=== PATIENT | male | born 1945 | race Caucasian/White ===

== ENCOUNTER 2017-02-04 09:30 | Outpatient (RCR) | payer MEDICARE, OTHER ==
[~2017-02-04] VITALS: Ht 190.5 cm; Wt 112.9 kg
[~2017-02-04 09:30] MED LIST: CA C1TAB85 PO; CHOL200021 PO; DIPH-740 PO; DOCU-416 PO; FISH OIL 1,2001 CAP PO; GABA-549 PO; HYDR-317 PO; HYDR-4309 PO; HYDR12.556 PO; IBUP600T22 PO; LORA5TAB16 PO; MAGN1TAB32 PO; MELO-150 PO; MULT-820 PO; OLM20 PO; OLME40TA28 PO; OXYB10TA16 PO; OXYB10TA21 PO; OXYC-865 PO; PHEN100T27 PO; PHEN200T32 PO; POTC540 PO; TAMS0.4C25 PO; TAMS0.4C70 PO
[2017-02-04 09:33] VITALS: BP 136/69
--- NOTE | 2017-02-04 09:35 | ONC Progress Note - NP.Halsey ---
Patient History Date of Service Feb 04, 2017 Reason For Visit/HPI Patient is seen today for follow-up of his thrombocytopenia and hereditary hemochromatosis. Overall patient is feeling very well and denies any symptoms that he previously had if his iron studies were elevated such as increased fatigue and a generalized ache. Patient does have lower back pain and is scheduled to have back surgery on February 22 for disc surgery and nerve opening repair. Patient feels that post surgery some of his lower extremity numbness and tingling should improve. He remains active and goes to the gym at least 3 days a week. He previously had a cystogram on 12/18/2016 and reports that a large kidney stone was removed. Since that time he is significantly felt better. He has no concerns today. Labs were drawn from an outside source. Problem List (1) Thrombocytopenia (2) Hemochromatosis Oncology History The patient is a 71-year-old male who was diagnosed with hereditary hemochromatosis ten years ago, on maintenance phlebotomies currently. The patient has been followed by Dr. 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 He was found to have mild thrombocytopenia and for this reason the patient had CT-guided biopsy of the liver done on April 28, 2016 and the final diagnosis was consistent with focal mild periportal chronic inflammatory and no increased fibrosis. The patient was concerned about his thrombocytopenia and has been seen for management. Patient had repeat CBC which showed white count 4.8, hemoglobin 17.2, hematocrit 51.7% and platelets 103,000. Iron studies showed serum iron 92, TIBC 238, iron saturation 39% and ferritin 90. Platelet associated antibodies came back negative. Serum folate was more than 20. Methylmalonic acid assay was normal at 195. B12 level was normal at 557. Psychosocial History Social History The patient is with two children. 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 He denies any abuse of tobacco or illicit drugs. He has one drink per week. Smoking History: No Smoking Status: Never Smoker Medications and Allergies Reported Medications Tamsulosin Hcl (TAMSULOSIN HCL) 0.4 Mg Cap.er.24h, 0.4 MG PO QDPC, #30 CAP 09/17/16 Docusate Sodium (COLACE) 100 Mg Capsule, 100 MG PO BID, #30 CAPSULE 09/17/16 Hydrocodone Bit/Acetaminophen (NORCO 5-325 TABLET) 1 Each Tablet, 1-2 EACH PO Q6H Y for PAIN, #30 TAB 09/17/16 Hydrochlorothiazide (HYDROCHLOROTHIAZIDE) 12.5 Mg Capsule, 1 TAB PO BID, CAPSULE 09/15/16 Potassium Citrate (POTASSIUM CITRATE) 540 Mg Tabcr, 2 TAB PO BID 09/15/16 Loratadine (CLARITIN) 5 Mg Tab.rapdis, 5 MG PO DAILY 08/07/16 Magnesium Oxide/Pyridoxine Hcl (BEELITH TABLET) 1 Each Tablet, 1 EACH PO DAILY 05/15/16 Cholecalciferol (Vitamin D3) (VITAMIN D) 2,000 Unit Capsule, 2000 UNIT PO DAILY , CAPSULE 07/04/15 Olmesartan Medoxomil (BENICAR) 40 Mg Tablet, 40 MG PO DAILY 07/04/15 Gabapentin (GABAPENTIN) 300 Mg Capsule, 300 MG PO TID Y for PAIN, CAPSULE 07/04/15 Meloxicam (Mobic) 15 Mg Tablet, 15 MG PO DAILY, 0 Refills 02/23/11 Allergies: Coded Allergies: No Known Drug Allergies (Verified , 07/04/15) Review of System/Physical Exam Review of Systems All Systems Reviewed/Normal: Yes, Except as Noted Hematologic: Positive for Fatigue Neurologic: Numbness of Feet, Tingling of Feet Physical Exam Vital Signs Temperature: 97.3 Pulse: 74 BP Systolic: 136 BP Diastolic: 69 Respiratory Rate: 16 O2 SAT: 94 O2 Delivery: Height (inches) 75.00 Weight lb: 242 Weight oz: Weight Kg (Axel): Pain: 0 ECOG Score: 0 General: Stable, Well Developed, Well Nourished, Not In Acute Distress Lungs: Clear to Auscultation Heart: Regular Rate, Regular Rhythm, No Gallops, No Murmurs Abdomen: Other (bowel sounds active) Extremities: No Edema Psychiatric: Mood appears normal, Affect appears normal Skin: No Skin Rashes, No Bruising, No Purpura Diagnostic Studies Diagnostic Studies Laboratory CBC drawn on 01/28/2017 shows a white cell count of 4800, hemoglobin 18.8, hematocrit of 51.7, and a platelet count of 117,000. His chemistry is essentially unremarkable. Serum iron is 199, serum ferritin is 106. Previously ferritin on 05/15/2016 was 24. Patient also had healthcare labs drawn on 2016 and hemoglobin was 18.9, platelet count 111,000 and saturation was at 58% Assessment and Plan Assessment & Plan 1. Thrombocytopenia, very mild with platelet count of 111,000 today. His is relatively stable for this patient.. His B12 folate level, methylmalonic acid assay and platelet associated antibodies came within the normal range on previous studies. 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 I will continue to monitor his platelet count in the future, and if his platelet count drops to 20,000 a bone marrow aspiration biopsy will be considered. Patient has low platelets documented since 2016. His hemoglobin remains elevated at 18.8 over the last 6 months with a hematocrit of 51.7. Patient previously received phlebotomies but has not been phlebotomized in over a year. I will repeat CBC and CMP 3 months from now. Patient is having back surgery in February which may affect his platelet level and hemoglobin. Patient agrees with this plan of care. 2. Hereditary hemochromatosis. He is borderline with a hemoglobin of 18.8 and ferritin of 106, serum iron is 199. Because he is having surgery he will not be phlebotomize today. We will repeat labs in [address] Croft' s guideline reports tophlebotomize 500 mL of blood if his ferritin is above 100 and/or iron saturation above 60%. Patient has not had any phlebotomy during 2017. We will repeat his iron studies in three months from now 3. Peripheral neuropathy on gabapentin. 4. Type 2 diabetes, very mild. 5. History of renal stones. PLAN 1. Continue followup. 2. Patient to return in 3 months with CBC, chem panel, iron studies with ferritin. 3. Patient is to contact us for any new concerns or complaints. I personally spent a total of 20 minutes. Of that 15 minutes was counseling/ coordination of patient's care. See my note above for details. DEVON MCGOWAN TRAVELING REPAIR ACCOUNTANT-BC, ONC Feb 04, 2017 09:35
[2017-02-17] MEDS ORDERED: HYDR-2966 PO (09:50)
[2017-02-17] MEDS ORDERED: LORA-629 PO (11:08)
[2017-02-17] MEDS ORDERED: PSYL0.5241 PO (11:08)
[2017-02-22] MEDS ORDERED: PYRI50CA PO (17:21)
[2017-02-22] MEDS ORDERED: MAGN400T4 PO (17:21)
[2017-02-24] MEDS ORDERED: DIA5 PO (07:22)
[2017-02-24] MEDS ORDERED: DOCU240C84 PO (07:22)
[2017-02-24] MEDS ORDERED: OXYC-865 PO (07:23)
== END 2017-03-05 09:03 | disposition home or self-care (01) ==
LOC: ONC 09:30
PROVIDERS: ATTEND Internal Medicine Hematology
DX: D69.6 Thrombocytopenia, unspecified (principal); E83.110 Hereditary hemochromatosis; G62.9 Polyneuropathy, unspecified; E11.9 Type 2 diabetes mellitus without complications; Z87.442 Personal history of urinary calculi; Z79.899 Other long term (current) drug therapy
CPT/HCPCS: 99212

== ENCOUNTER 2017-02-22 00:46 | Observation (INO) | payer MEDICARE, OTHER ==
[~2017-02-22] VITALS: Ht 190.5 cm; Wt 110.2 kg
[~2017-02-22 00:46] MED LIST changes: +HYDR-2966 PO; +LORA-629 PO; +PSYL0.5241 PO
[2017-02-22] MEDS ORDERED: THROMBIN (BOVINE) 20,000 UNIT VIAL ONE (06:20)
[2017-02-22] MEDS ORDERED: fentaNYL CITR 250 MCG/5 ML AMP ONE (08:08)
[2017-02-22] MEDS ORDERED: LIDOCAINE 2% IV 100 MG/5ML SYR ONE (08:09)
[2017-02-22] MEDS ORDERED: PROPOFOL EMUL(*) 10MG/ML 20 ML 20 ML ONE (08:09)
[2017-02-22 09:05] VITALS: BP 118/75
[2017-02-22] MEDS ORDERED: DEXAMETHASONE SOD 20MG/5 ML VL ONE (12:01)
[2017-02-22] MEDS ORDERED: BUPIVACAIN 0.25% INJ 50ML VIAL ONE (12:01)
[2017-02-22] MEDS ORDERED: DEXAMETHASONE SOD PHOS 10MG/ML ONE (12:24)
[2017-02-22] MEDS ORDERED: ONDANSETRON 4 MG/2 ML VIAL ONE (12:25)
[2017-02-22] MEDS ORDERED: ROCURONIUM BROM 10 MG/ML 10 ML ONE (12:30)
[2017-02-22] MEDS ORDERED: EPINEPHrine HCL 30 MG/30 ML ONE (12:30)
[2017-02-22] MEDS ORDERED: SUGAMMADEX SOD 500 MG/5 ML SDV ONE (12:30)
[2017-02-22] MEDS ORDERED: NORMOSOL R SOLN(*) 1000 ML BAG 1,000 ML IV PRN (13:30)
[2017-02-22] MEDS ORDERED: ceFAZolin(*) 2GM/D5W 50ML 50 ML IVPB ONE (13:30)
[2017-02-22] MEDS ORDERED: FAMOTIDINE 20 MG TAB PO ONE (13:30)
[2017-02-22] MEDS ORDERED: MIDAZOLAM 2 MG/2 ML VIAL IVP PRN (13:30)
[2017-02-22] MEDS ORDERED: LIDOCAINE/SOD BICARB 8.4% SYR ID ONE (13:30)
--- NOTE | 2017-02-22 13:45 | RADIOLOGY IMAGING REPORT ---
FACILITY: [facility] PATIENT NAME: Adalberto Sun : 1945 MR: [id number] V: [id number] EXAM DATE: ORDERING PHYSICIAN: ANURADHA TORRES TECHNOLOGIST: Location: [facility] [place] Patient: Adalberto Sun : 1945 Visit/Account:[id number] Date of Sevice: 02/22/2017 Exam type: LUMBAR SPINE 1 VIEW History: LUMBASPINE L2-L3 DISC HERNIATION COMPARISON: MR lumbar spine January 01, 2017 Findings: Single lateral intraoperative view of the lumbar spine was submitted. Assuming the patient has five lumbar type vertebral bodies a metallic probe and sponge marker projects between the day porter ior spinous processes of L2 and L3. Extensive spondylotic changes lumbar spine noted. IMPRESSION: 1. As above Report Dictated By: Gabriella Stallworth MD at 02/22/2017 1:39 PM Report E-Signed By: Gabriella Stallworth MD at 02/22/2017 1:42 PM WSN:[email or web address]
[2017-02-22] MEDS ORDERED: fentaNYL CITR 100 MCG/2 ML AMP ONE ×2 (15:00→15:14)
[2017-02-22] MEDS ORDERED: ACETAMINOPHEN(*)1000 MG/100 ML 100 ML IVPB PRN (15:15)
[2017-02-22] MEDS ORDERED: BENZOCAINE/MENTHOL 1 EACH LOZG PO PRN (15:15)
[2017-02-22] MEDS ORDERED: BISACODYL 10 MG SUPP PR PRN (15:15)
[2017-02-22] MEDS ORDERED: oxyCODONE HCL 5 MG CAP PO PRN (15:15)
[2017-02-22] MEDS ORDERED: FLUSH 10 ML SYR IVP PRN (15:15)
[2017-02-22] MEDS ORDERED: ACETAMINOPHEN 500 MG TAB PO PRN (15:15)
[2017-02-22] MEDS ORDERED: DIAZEPAM 5 MG TAB PO PRN (15:15)
[2017-02-22] MEDS ORDERED: diphenhydrAMINE 25 MG CAP PO PRN (15:15)
[2017-02-22] MEDS ORDERED: LR(*) 1000 ML BAG 1,000 ML IV PRN (15:15)
[2017-02-22] MEDS ORDERED: ONDANSETRON 4 MG/2 ML VIAL IVP PRN (15:15)
[2017-02-22] MEDS ORDERED: HYDROmorphone HCL 2 MG/ML SDV IVP PRN (15:15)
[2017-02-22] MEDS ORDERED: MAGNESIUM HYDROXIDE* 30ML UDCP PO PRN (15:15)
[2017-02-22] MEDS ORDERED: GABAPENTIN 300 MG CAP PO PRN (16:15)
[2017-02-22] MEDS: APAP/HYDROCODONE 325/5 TAB PO PRN (16:24)
[2017-02-22] MEDS ORDERED: PYRI50CA PO (17:21)
[2017-02-22] MEDS ORDERED: MAGN400T4 PO (17:21)
--- NOTE | 2017-02-22 17:26 | Hospitalist Consultation ---
History of Present Illness Requesting Physician Dr. Campos Reason for Consult Hypertension History of Present Illness This patient was admitted for lumbar surgery. It is reported that the surgery went well and was without complication. History Problems: (1) Essential hypertension (2) Hemochromatosis Status: Acute Home Meds Reported Medications Pyridoxine Hcl (VITAMIN B-6) 50 Mg Capsule, 50 MG PO, CAPSULE 02/22/17 Magnesium Oxide (MAG-OXIDE) 400 Mg Tablet, 400 MG PO 02/22/17 Psyllium Husk (METAMUCIL) 0.52 Gm Capsule, 22 G PO QDAY, CAPSULE 02/17/17 Loratadine (LORATADINE) 10 Mg Tablet, 10 MG PO QDAY 02/17/17 Hydrochlorothiazide (HYDROCHLOROTHIAZIDE) 25 Mg Tablet, 1 TAB PO QDAY, TAB 02/17/17 Potassium Citrate (POTASSIUM CITRATE) 540 Mg Tabcr, 1620 MG PO QDAY 09/15/16 Cholecalciferol (Vitamin D3) (VITAMIN D) 2,000 Unit Capsule, 2000 UNIT PO DAILY , CAPSULE 07/04/15 Olmesartan Medoxomil (BENICAR) 40 Mg Tablet, 40 MG PO DAILY 07/04/15 Gabapentin (GABAPENTIN) 300 Mg Capsule, 300 MG PO TID Y for PAIN, CAPSULE 07/04/15 Meloxicam (Mobic) 15 Mg Tablet, 15 MG PO DAILY, 0 Refills 02/23/11 Discontinued Reported Medications Tamsulosin Hcl (TAMSULOSIN HCL) 0.4 Mg Cap.er.24h, 0.4 MG PO QDPC, #30 CAP 09/17/16 Docusate Sodium (COLACE) 100 Mg Capsule, 100 MG PO BID, #30 CAPSULE 09/17/16 Hydrocodone Bit/Acetaminophen (NORCO 5-325 TABLET) 1 Each Tablet, 1-2 EACH PO Q6H Y for PAIN, #30 TAB 09/17/16 Hydrochlorothiazide (HYDROCHLOROTHIAZIDE) 12.5 Mg Capsule, 1 TAB PO BID, CAPSULE 09/15/16 Loratadine (CLARITIN) 5 Mg Tab.rapdis, 5 MG PO DAILY 08/07/16 Magnesium Oxide/Pyridoxine Hcl (BEELITH TABLET) 1 Each Tablet, 1 EACH PO DAILY 05/15/16 Allergies: Coded Allergies: tomato (Verified Allergy, Unknown, 02/17/17) Uncoded Allergies: chocolate (Allergy, Unknown, 02/17/17) red wine (Allergy, Unknown, 02/17/17) Hx Smoking: No Smoking Status: Never Smoker Caffeine Intake: Coffee, Tea Caffeine/Cups Per Day: 2 cups Qday Hx Alcohol Use: Yes (1-2 drinks per month) Alcohol Used: Wine Hx Substance Use Disorder: No Social Drug Use: Never History of IV Drug Use: No Review of Systems All Systems Reviewed/Normal: Yes Exam Vital Signs Vital Signs Date Time Temp Pulse Resp B/P (MAP) Pulse Ox O2 Delivery O2 Flow Rate FiO2 02/22/17 15:45 64 16 93 02/22/17 09:05 97.1 118/75 (89) Room Air Neuro: No Gross deficits Cardiovascular: Regular Rate and Rhythm Respiratory: Clear to Auscultation Extremities: No Edema Integumentary: No Cyanosis Assessment and Plan Problems: (1) Essential hypertension Assessment & Plan: He is on chronic treatment with olmesartan and hydrochlorothiazide. The olmesartan has been ordered with hold parameters. Venous Thromboembolism Antithrombotics Is Pt On Any Antithrombotics?: No MALIKA ADAMS DO Feb 22, 2017 17:26
[2017-02-22 19:00] VITALS: BP 117/67
[2017-02-22] MEDS: ceFAZolin(*) 2GM/D5W 50ML 50 ML IVPB SCH (19:42)
[2017-02-22 20:00] VITALS: BP 136/72
[2017-02-22] MEDS: DOCUSATE SODIUM 100 MG CAP PO SCH (20:41)
[2017-02-22 21:00] VITALS: BP 137/69
[2017-02-22 22:00] VITALS: BP 138/77
[2017-02-22 23:00] VITALS: BP 123/69
[2017-02-23] MEDS: APAP/HYDROCODONE 325/5 TAB PO PRN ×4 (04:26→20:39)
[2017-02-23] MEDS: ceFAZolin(*) 2GM/D5W 50ML 50 ML IVPB SCH ×2 (04:26→12:27)
[2017-02-23 07:27] VITALS: BP 140/71
--- NOTE | 2017-02-23 07:42 | Hospitalist Progress Note ---
Subjective Progress Notes Subjective This patient was admitted with hold parameters. He had no acute issues overnight. Patient Complains of: Cardiovascular: No: Chest Pain Respiratory: No: Shortness of Breath Physical Exam Vital Signs Date Time Temp Pulse Resp B/P (MAP) Pulse Ox O2 Delivery O2 Flow Rate FiO2 02/23/17 07:27 98.4 76 16 140/71 (94) 95 Room Air 02/22/17 23:00 0.5 Cardiovascular: Regular Rate and Rhythm Respiratory: Clear to Auscultation Assessment and Plan Problems: (1) Essential hypertension Assessment & Plan: He is on chronic treatment with olmesartan and hydrochlorothiazide. The olmesartan has been ordered with hold parameters. Exam Sepsis Risk: No Definite Risk MALIKA ADAMS DO Feb 23, 2017 07:42
[2017-02-23 08:48] VITALS: Ht 190.5 cm; Wt 110.2 kg
[2017-02-23] MEDS: LORATADINE 10 MG TAB PO SCH (09:25)
[2017-02-23] MEDS: DOCUSATE SODIUM 100 MG CAP PO SCH ×2 (09:25→20:39)
[2017-02-23] MEDS: OLMESARTAN 20 MG TAB PO SCH (09:26)
--- NOTE | 2017-02-23 11:58 | OPERATIVE REPORT 1 ---
EVENT DATE: February 22, 2017 SURGEON: Quinton Campos MD ANESTHESIOLOGIST: Param Huffman MD ANESTHESIA: General endotracheal anesthsia SALARY AND WAGE ADMINISTRATOR: SUKHI Chawla, HOUSE WIRER HELPER PREOPERATIVE DIAGNOSIS L2 through L5 spinal stenosis with neurogenic claudication. POSTOPERATIVE DIAGNOSIS L2 through L5 spinal stenosis with neurogenic claudication. PROCEDURE PERFORMED L2 through L5 laminectomy. IV FLUIDS 900 mL. ESTIMATED BLOOD LOSS 125 mL. IMPLANTS None. SPECIMENS None. DRAINS None. COMPLICATIONS None. DISPOSITION Post anesthesia care unit. INDICATION FOR SURGERY Mr. Sun is a 71-year-old gentleman who presented to my clinic with a long history of worsening bilateral lower extremity radiating pain, numbness, tingling and weakness. He had significant decreased walking tolerance secondary to his symptoms. He had tried physical therapy, medications and activity modification with no real improvement. His physical examination was essentially normal, but his imaging studies including x-rays and an MRI showed significant spinal stenosis secondary to degenerative disk disease, facet hypertrophy and ligamentum flavum thickening at L2-L3, L3-L4 and L4-L5. Secondary to no real improvement in his symptoms despite nonsurgical management coupled with the findings on his MRI and his ongoing pain, numbness and tingling , Mr. Sun was offered and elected to undergo L2 through L5 laminectomy. Prior to surgery, I explained in detail to the patient the possible risks of surgery, including the risk of nerve injury, persistent and/or worsening pain, spinal fluid leak, infection or meningitis, excessive bleeding, paralysis, , blindness, sexual dysfunction, retrograde ejaculation, blood vessel injury, injury to neighboring organs, need for further surgery, bowel and bladder dysfunction, instability and autonomic nervous system dysfunction as well as unforeseen medical and surgical complications. An understanding that in general spinal surgery is more predictive in improving extremity discomfort than axial spine pain and arresting the progression of spinal cord dysfunction rather than improving it was stressed. DESCRIPTION OF PROCEDURE On the date of surgery, the patient was admitted to the preoperative hold area, and all questions were answered. The operative site was identified and marked by myself. The patient was then taken to the operating room, and after identification of the patient and the operative site, administration of antibiotics and completion of anesthesia, the patient was prepped and draped in the prone position on a Ridge table. During this time and the entire operation, care was taken to maintain appropriate perfusion pressures during anesthesia. All bony protuberances and soft tissues were well padded in the standard fashion. Preoperative antibiotics were administered according to the appropriate timing schedule. Every 15 minutes, soft tissue retractors were relaxed, and the wound was irrigated. At the conclusion of the procedure, the sponge and needle counts were correct x 2. Final time out was undertaken by members of the operating team to confirm correct patient, correct levels and correct surgery. An incision was then made in the skin over the intended surgical levels, and dissection was carried down to the subcutaneous tissue to the level of the deep fascia. The deep fascia was elevated off the posterior elements in a subperiosteal manner, and an intraoperative radiograph was taken to confirm the appropriate spinal level. Once the appropriate spinal levels were identified with intraoperative imaging, a rongeur was used to remove the spinous processes of L2, L3 and L4. Once this was completed, the laminas were thinned bilaterally with the use of a rongeur. A small curved curette was used to undermine the inferior insertion of the ligamentum flavum on the undersurface of the inferior lamina of L5. All dural adhesions were freed from the surrounding bone and ligaments with the use of a [place] prior to the use of the Kerrison punch. A 3-0 and 4-0 Kerrison punch was then used to perform midline decompression. A bilateral lateral recess decompression was performed utilizing a 4-0 [place] rongeur to decompress thoroughly the lateral recesses at L2-L3, L3-L4 and L4-L5 followed by foraminotomies of all involved nerve roots. An angled dural elevator and [place] was then passed around exiting nerve roots to confirm that they were free without any compression. Once the decompression was completed, meticulous hemostasis was obtained, and the wound was irrigated with copious sterile saline solution. The wound was then closed in layers using interrupted sutures for the deep fascia, inverted interrupted sutures for the subcutaneous tissue and then a running subcuticular skin stitch. Sponge and instrument counts were correct x 2. POSTOPERATIVE CARE PLAN Mr. Sun will remain in the hospital until he meets discharge criteria, including voiding spontaneously, ambulating freely, tolerating p.o. intake and with good pain control. He will then follow up in my clinic in two weeks time for repeat examination. JEVON
[2017-02-23 14:59] VITALS: BP 105/64
[2017-02-23 19:36] VITALS: BP 107/56
[2017-02-23 22:47] VITALS: BP 95/48
[2017-02-23 22:54] VITALS: BP 96/46
[2017-02-24 01:19] VITALS: BP 112/74
[2017-02-24] MEDS: APAP/HYDROCODONE 325/5 TAB PO PRN ×2 (01:22→05:40)
[2017-02-24 03:19] VITALS: BP 108/64
[2017-02-24] MEDS ORDERED: DOCU240C84 PO (07:22)
[2017-02-24] MEDS ORDERED: DIA5 PO (07:22)
[2017-02-24] MEDS ORDERED: OXYC-865 PO (07:23)
[2017-02-24] MEDS: OLMESARTAN 20 MG TAB PO SCH (08:16)
[2017-02-24] MEDS: DOCUSATE SODIUM 100 MG CAP PO SCH (08:16)
[2017-02-24] MEDS: LORATADINE 10 MG TAB PO SCH (08:16)
[2017-02-24 08:19] VITALS: BP 104/70
--- NOTE | 2017-02-24 08:44 | Hospitalist Progress Note ---
Subjective Progress Notes Subjective No cp/sob. No concerns from the patient or staff. Physical Exam Vital Signs Date Time Temp Pulse Resp B/P (MAP) Pulse Ox O2 Delivery O2 Flow Rate FiO2 02/24/17 08:20 90 Room Air 02/24/17 08:19 97.7 59 16 104/70 (81) 02/22/17 23:00 0.5 General Appearance: Alert, Awake, No Acute Distress Assessment and Plan Problems: (1) Status post lumbar laminectomy Status: Acute Assessment & Plan: No CV/pulmonary issues. Will defer any DVT prophylaxis to Dr. Campos. (2) Essential hypertension Status: Chronic Assessment & Plan: He is on chronic treatment with olmesartan and hydrochlorothiazide. The olmesartan will be restarted in 2 days and the hydrochlorothiazide in 4 days. If he is getting light headed with standing, he is to contact his PCP. Exam Sepsis Risk: No Definite Risk JAYJAY BRANCH MD Feb 24, 2017 08:44
== END 2017-02-24 07:47 | disposition home or self-care (01) ==
LOC: OR 00:46 → MED 15:40
PROVIDERS: ADMIT Orthopaedic Surgery; ATTEND Orthopaedic Surgery
DX: M48.062 Spinal stenosis, lumbar region with neurogenic claudication (principal); E11.9 Type 2 diabetes mellitus without complications
CPT/HCPCS: 36416; 63030; 63035; 72020; 82948; 97116; 97161; A9270; G0378; J0171; J1100; J2001; J2405; J2704; J3010; J3490; J0690

== ENCOUNTER 2017-05-06 08:57 | Outpatient (RCR) | payer MEDICARE, OTHER ==
[2017-02-23 08:48] VITALS: Wt 113.6 kg
[~2017-05-06 08:57] MED LIST changes: +DIA5 PO; +DOCU240C84 PO; +MAGN400T4 PO; +PYRI50CA PO
[2017-05-06 09:07] VITALS: BP 143/86
--- NOTE | 2017-05-07 17:20 | ONCOLOGY FOLLOW UP NOTE ---
EVENT DATE: May 06, 2017 DIAGNOSES 1. Thrombocytopenia. 2. Hereditary hemochromatosis. 3. Peripheral bony neuropathy. 4. Type 2 diabetes. 5. History of renal stones. CHIEF COMPLAINT Patient is here today for followup of his thrombocytopenia and hereditary hemochromatosis. HEMATOLOGY HISTORY The patient is a 70-year-old male who was diagnosed with hereditary hemochromatosis ten years ago, on maintenance phlebotomies currently. The patient has been followed by Dr. 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 He was found to have mild thrombocytopenia lately and for this reason the patient had CT-guided biopsy of the liver done on April 28, 2016 and the final diagnosis was consistent with focal mild periportal chronic inflammatory and no increased fibrosis. The patient was concerned about his thrombocytopenia and that is why he came to discuss further evaluation and management. Patient had repeat CBC which showed white count 4.8, hemoglobin 17.2, hematocrit 51.7% and platelets 103,000. Iron studies showed serum iron 92 , TIBC 238, iron saturation 39% and ferritin 90. Platelet associated antibodies came back negative. Serum folate was more than 20. Methylmalonic acid assay was normal at 195. B12 level was normal at 557. HISTORY OF PRESENT ILLNESS Patient is here today for followup of his hemochromatosis and thrombocytopenia. He is doing fine currently except for recent back surgery. He is complaining of some pain in his left hip, but other than that he is doing fine. PAST MEDICAL HISTORY 1. Peripheral neuropathy. 2. Hereditary hemochromatosis. 3. Labile hypertension. 4. Type 2 diabetes. 5. History of renal stones. PAST SURGICAL HISTORY 1. 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 2. He had had surgery for a possible mass, which came back negative. 3. He had also tonsillectomy. FAMILY HISTORY Father had prostate cancer. Sister with ovarian cancer. No history of hemochromatosis in his family. SOCIAL HISTORY The patient is with two children. 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 He denies any abuse of tobacco or illicit drugs. He has one drink per week. CURRENT MEDICATIONS 1. Magnesium oxide/pyridoxine hydrochloride one tablet daily. 2. Colace 100 mg twice daily. 3. Vitamin D 2000 units daily. 4. Benicar 40 mg daily. 5. Gabapentin 300 mg three times daily as needed. 6. Benadryl 25 mg orally daily. 7. Multivitamins once daily. 8. Meloxicam 15 mg daily. ALLERGIES No known drug allergies. REVIEW OF SYSTEMS CONSTITUTIONAL: No appetite or weight change. No fever, chills or sweating. No recent infection. HEENT: Ears: No tinnitus or hearing problem. Nose: No nasal discharge or epistaxis. Throat: No sore throat or mouth ulcers. Eyes: No diplopia or visual changes. RESPIRATORY: No shortness of breath. No cough, expectoration or hemoptysis. CARDIOVASCULAR: No chest pain, orthopnea, or paroxysmal nocturnal dyspnea (PND) . No edema. No palpitations. GASTROINTESTINAL: No nausea or vomiting. He had an episode of diarrhea which resolved. No change in bowel movements. No heartburn or swallowing difficulties. No abdominal pain. No jaundice. No hematemesis, melena or rectal bleeding. GENITOURINARY: No hematuria or dysuria. MUSCULOSKELETAL: The patient has pain in his left hip. NEUROLOGICAL: He has tingling and numbness in his feet from his peripheral neuropathy. HEMATOLOGIC/LYMPHATIC: No bleeding or easy bruising. No weakness or fatigue. No enlarged lymph nodes. SKIN: No skin rash or lumps. PSYCHIATRIC: No anxiety or depression. PHYSICAL EXAMINATION GENERAL: Looks stable. Well-developed, well-nourished, and in no acute distress. VITAL SIGNS: Blood pressure 143/86, pulse 71 per minute, respirations 16 per minute, temperature 97, pulse ox 94% on room air. HEENT: Head: Atraumatic. No sinus tenderness to palpation. Eyes: No icterus or conjunctivitis. Mouth and throat: No oral thrush or mucositis. NECK: Supple. No cervical or supraclavicular lymphadenopathy. LUNGS: Clear to auscultation and percussion bilaterally. HEART: Regular rate and rhythm. No gallops, murmurs, clicks or rubs. ABDOMEN: Soft and lax. No tenderness. No hepatosplenomegaly. No masses. EXTREMITIES: No cyanosis, clubbing or edema. LYMPHATICS: No peripheral lymphadenopathy. NEUROLOGICAL: Conscious, alert and oriented times three. No focal motor or sensory deficits. PSYCHIATRIC: Mood and affect appear normal. SKIN: No skin rash, bruise or purpuric eruption. DIAGNOSTIC DATA CBC showed a white count of 5.1, hemoglobin 18.8, hematocrit 58.4, platelets 129 ,000. Chem panel totally normal except for blood sugar of 149. Serum ferritin was 104. Serum iron 122. ASSESSMENT 1. Thrombocytopenia, very mild, always above 100,000. His current platelet count 129,000. His B12 folate, methylmalonic acid assay and platelet associated antibodies all came within the normal range. I am planning to continue followup. If he deteriorates his platelet count below 20,000 then we will consider bone marrow aspiration biopsy at that time. 2. Hereditary hemochromatosis. His current ferritin is 104. I am planning to phlebotomize 500 mL of blood at this time. I will see him in three months with CBC, iron studies at that time. 3. Erythrocytosis. Current hematocrit 58.4% and patient is going to have phlebotomy at this time. This could be due to his sleep apnea. 4. Peripheral neuropathy on gabapentin. 5. Type 2 diabetes. PLAN 1. Phlebotomize 500 mL of blood at this time. 2. Patient to return in three months with CBC, chem panel, iron studies with ferritin. 3. Patient is to contact us for any new concern or complaints. JEVON
== END 2017-08-03 ==
LOC: ONC 08:57
PROVIDERS: ATTEND Internal Medicine Hematology
DX: E83.119 Hemochromatosis, unspecified (principal)
CPT/HCPCS: 99212

== ENCOUNTER 2017-08-05 09:30 | Outpatient (RCR) | payer MEDICARE, OTHER ==
[2017-02-23 08:48] VITALS: Wt 113.3 kg
[2017-08-05 09:41] VITALS: BP 159/89
--- NOTE | 2017-08-05 20:19 | EL-TARABILY ONCOLOGY NOTE ---
EVENT DATE: August 05, 2017 DIAGNOSES 1. Thrombocytopenia. 2. Hereditary hemochromatosis. 3. Peripheral bony neuropathy. 4. Type 2 diabetes. 5. History of renal stones. CHIEF COMPLAINT Patient is here today for followup of his thrombocytopenia and hereditary hemochromatosis. HEMATOLOGY HISTORY The patient is a 72-year-old male who was diagnosed with hereditary hemochromatosis ten years ago, on maintenance phlebotomies currently. The patient has been followed by Dr. Hill in [place], his solar sales advisor. He was found to have mild thrombocytopenia lately and for this reason the patient had CT-guided biopsy of the liver done on April 28, 2016 and the final diagnosis was consistent with focal mild periportal chronic inflammatory and no increased fibrosis. The patient was concerned about his thrombocytopenia and that is why he came to discuss further evaluation and management. Patient had repeat CBC which showed white count 4.8, hemoglobin 17.2, hematocrit 51.7% and platelets 103,000. Iron studies showed serum iron 92 , TIBC 238, iron saturation 39% and ferritin 90. Platelet associated antibodies came back negative. Serum folate was more than 20. Methylmalonic acid assay was normal at 195. B12 level was normal at 557. HISTORY OF PRESENT ILLNESS Patient is here today for followup of his hemochromatosis and thrombocytopenia. He is doing fine currently except having pain in his left hip from arthritis. He has also neuropathy in his feet with numbness. PAST MEDICAL HISTORY 1. Peripheral neuropathy. 2. Hereditary hemochromatosis. 3. Labile hypertension. 4. Type 2 diabetes. 5. History of renal stones. PAST SURGICAL HISTORY 1. 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 2. He had had surgery for a possible mass, which came back negative. 3. He had also tonsillectomy. FAMILY HISTORY Father had prostate cancer. Sister with ovarian cancer. No history of hemochromatosis in his family. SOCIAL HISTORY The patient is with two children. 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 He denies any abuse of tobacco or illicit drugs. He has one drink per week. CURRENT MEDICATIONS 1. Magnesium oxide/pyridoxine hydrochloride one tablet daily. 2. Colace 100 mg twice daily. 3. Vitamin D 2000 units daily. 4. Benicar 40 mg daily. 5. Gabapentin 300 mg three times daily as needed. 6. Benadryl 25 mg orally daily. 7. Multivitamins once daily. 8. Meloxicam 15 mg daily. ALLERGIES No known drug allergies. REVIEW OF SYSTEMS CONSTITUTIONAL: No appetite or weight change. No fever, chills or sweating. No recent infection. HEENT: Ears: No tinnitus or hearing problem. Nose: No nasal discharge or epistaxis. Throat: No sore throat or mouth ulcers. Eyes: No diplopia or visual changes. RESPIRATORY: No shortness of breath. No cough, expectoration or hemoptysis. CARDIOVASCULAR: No chest pain, orthopnea, or paroxysmal nocturnal dyspnea (PND) . No edema. No palpitations. GASTROINTESTINAL: No nausea or vomiting. No diarrhea or constipation. No change in bowel movements. No heartburn or swallowing difficulties. No abdominal pain. No jaundice. No hematemesis, melena or rectal bleeding. GENITOURINARY: No hematuria or dysuria. MUSCULOSKELETAL: He has pain in the left hip from arthritis. NEUROLOGICAL: He has numbness in his feet. No headaches or convulsions. HEMATOLOGIC/LYMPHATIC: No bleeding or easy bruising. No weakness or fatigued. No enlarged lymph nodes. SKIN: No skin rash or lumps. PSYCHIATRIC: No anxiety or depression. PHYSICAL EXAMINATION GENERAL: Looks stable. Well-developed, well-nourished, and in no acute distress. VITAL SIGNS: Blood pressure 159/89, pulse 62 per minute, respirations 16 per minute, temperature 97.2, pulse oximetry 95% on room air. HEENT: Head: Atraumatic. No sinus tenderness to palpation. Eyes: No icterus or conjunctivitis. Mouth and throat: No oral thrush or mucositis. NECK: Supple. No cervical or supraclavicular lymphadenopathy. LUNGS: Clear to auscultation and percussion bilaterally. HEART: Regular rate and rhythm. No gallops, murmurs, clicks or rubs. ABDOMEN: Soft and lax. No tenderness. No hepatosplenomegaly. No masses. EXTREMITIES: No cyanosis, clubbing or edema. LYMPHATICS: No peripheral lymphadenopathy. NEUROLOGICAL: Conscious, alert and oriented times three. No focal motor or sensory deficits. PSYCHIATRIC: Mood and affect appear normal. SKIN: No skin rash, bruise or purpuric eruption. DIAGNOSTIC DATA Serum ferritin is 107. Iron saturation is 82%. Serum iron 227. CBC showed platelet count 117,000, white count 4.6, hemoglobin 18.4, and hematocrit 53.4%. Chem panel totally normal except blood sugar 162. ASSESSMENT 1. Thrombocytopenia, very mild, and his platelet count is always above 100, 000. His current platelets are 117,000. His B12 folate, methylmalonic acid assay and platelet associated antibodies all came within the normal range. I am planning to continue to monitor his platelet count. I will consider bone marrow aspiration biopsy for further evaluation if the platelet count drops below 20,000. 2. History of hemochromatosis. His current ferritin is 107 and iron saturation 82%. I am planning to proceed with phlebotomy 500 mL of blood. My target for phlebotomy if the ferritin above 100 and the iron saturation above 60 %. 3. Erythrocytosis. Current hematocrit is 53.4%. I will consider phlebotomy if the hematocrit above 55%. 4. Peripheral neuropathy, on gabapentin. 5. Type 2 diabetes. PLAN 1. Phlebotomize 500 mL of blood this time. 2. Patient to return in three months with CBC, chem plan, iron studies with ferritin. 3. Patient to contact us for any new concern or complaints. JEVON
== END 2017-08-06 09:25 | disposition home or self-care (01) ==
LOC: ONC 09:30
PROVIDERS: ATTEND Internal Medicine Hematology
DX: D69.6 Thrombocytopenia, unspecified (principal); D75.1 Secondary polycythemia; G62.9 Polyneuropathy, unspecified; E83.119 Hemochromatosis, unspecified; E11.9 Type 2 diabetes mellitus without complications; Z79.899 Other long term (current) drug therapy
CPT/HCPCS: 99212

== ENCOUNTER → 2017-08-10 | Outpatient (CLI) | payer MEDICARE, OTHER ==
[2017-02-23 08:48] VITALS: BMI 30.4
--- NOTE | 2017-08-10 13:50 | RADIOLOGY IMAGING REPORT ---
FACILITY: [facility] - [place] PATIENT NAME: Adalberto Sun : 1945 MR: [id number] V: [id number] EXAM DATE: ORDERING PHYSICIAN: LULU YE TECHNOLOGIST: Location: [facility] - [place] Patient: Adalberto Sun : 1945 Visit/Account:[id number] Date of Sevice: 08/10/2017 CHEST W/O CONTRAST History: Pulmonary nodule TECHNIQUE: Contiguous axial images were performed through the chest to the level of the adrenal gla nds. No IV contrast was administered. Coronal and sagittal reformatting was also performed. Dose Lowe ring Technique One of the following dose optimization techniques was utilized in the performance of this exam: Autom ated exposure control; adjustment of the mA and/or kV according to the patient's size; or use of an i terative reconstruction technique. Specific details can be referenced in the facility's radiology C T exam operational policy. COMPARISON STUDIES: March 03, 2016. Lungs / Pleura: Three mm calcified nodule anterior aspect of the right middle lobe is unchanged. P reviously noted 3 mm noncalcified nodule posterior inferior right upper lung abutting the minor fissu re appears unchanged 9 mm subpleural nodule lateral aspect right lower lobe now appears more scarlike. Previous 8mm subpleural nodule lateral aspect of the right lower lobe appears unchanged There is a 2 mm calcified granuloma posterior medial right lower lobe best seen on image 307 of serie s 4 Previous 6 mm subpleural nodule lateral aspect of the left lower lobe slightly more prominent now hannah suring 8 mm when measured on the 1 mm thick slices. 1 to 3 mm thick slices are compared to the prior 5 mm slices this nodule appears unchanged there for the difference is likely related to technique There is now a small 3 mm calcified granuloma in the anterior aspect the left upper lobe best seen on image 192 of series 4 Mediastinum/nodes: negative. Heart and vessels: Coronary artery calcifications Musculoskeletal / Body wall: No aggressive appearing bone lesions Upper abdomen: 2.7 and a low density left adrenal nodule is unchanged IMPRESSION: Previous noted calcified and noncalcified pulmonary nodules appear stable or less prominent the large st nodule measures 9 mm although appears more scarlike at this time Report Dictated By: Gabriella Stallworth MD at 08/10/2017 1:27 PM Report E-Signed By: Gabriella Stallworth MD at 08/10/2017 1:47 PM WSN:[email or web address]
== END ==
LOC: CT 07:00
PROVIDERS: ATTEND Family Medicine
DX: I25.10 Atherosclerotic heart disease of native coronary artery without angina pectoris (principal); R91.8 Other nonspecific abnormal finding of lung field
CPT/HCPCS: 71250

== ENCOUNTER 2017-11-05 07:15 | Outpatient (RCR) | payer MEDICARE, OTHER ==
[2017-02-23 08:48] VITALS: Wt 111.2 kg
[~2017-11-05 07:15] MED LIST changes: -HYDR-4309 PO; +HYDR-653 PO
[2017-11-05 10:03] VITALS: BP 152/83
[2017-11-05] MEDS ORDERED: METF-452 PO (10:06)
[2017-11-05] MEDS ORDERED: SITA1TAB17 PO (10:06)
--- NOTE | 2017-11-05 10:57 | EL-TARABILY ONCOLOGY NOTE ---
EVENT DATE: November 05, 2017 DIAGNOSES 1. Thrombocytopenia. 2. Hereditary hemochromatosis. 3. Peripheral bony neuropathy. 4. Type 2 diabetes. 5. History of renal stones. CHIEF COMPLAINT Patient is here today for followup of his thrombocytopenia and hereditary hemochromatosis and secondary erythrocytosis. HEMATOLOGY HISTORY The patient is a 72-year-old male who was diagnosed with hereditary hemochromatosis ten years ago, on maintenance phlebotomies currently. The patient has been followed by Dr. Hill in [place], his records supervisor. He was found to have mild thrombocytopenia lately and for this reason the patient had CT-guided biopsy of the liver done on April 28, 2016 and the final diagnosis was consistent with focal mild periportal chronic inflammatory and no increased fibrosis. The patient was concerned about his thrombocytopenia and that is why he came to discuss further evaluation and management. Patient had repeat CBC which showed white count 4.8, hemoglobin 17.2, hematocrit 51.7% and platelets 103,000. Iron studies showed serum iron 92, TIBC 238, iron saturation 39% and ferritin 90. Platelet associated antibodies came back negative. Serum folate was more than 20. Methylmalonic acid assay was normal at 195. B12 level was normal at 557. HISTORY OF PRESENT ILLNESS Patient is here today for followup of his erythrocytosis, hemochromatosis and thrombocytopenia. He is doing fine currently except for pain in his left hip and the patient is scheduled next month to have left hip replacement. He has also pain in the feet and he has numbness in his legs from neuropathy. PAST MEDICAL HISTORY 1. Peripheral neuropathy. 2. Hereditary hemochromatosis. 3. Labile hypertension. 4. Type 2 diabetes. 5. History of renal stones. PAST SURGICAL HISTORY 1. 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 2. He had had surgery for a possible mass, which came back negative. 3. He had also tonsillectomy. FAMILY HISTORY Father had prostate cancer. Sister with ovarian cancer. No history of hemochromatosis in his family. SOCIAL HISTORY The patient is with two children. 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 He denies any abuse of tobacco or illicit drugs. He has one drink per week. CURRENT MEDICATIONS 1. Magnesium oxide/pyridoxine hydrochloride one tablet daily. 2. Colace 100 mg twice daily. 3. Vitamin D 2000 units daily. 4. Benicar 40 mg daily. 5. Gabapentin 300 mg three times daily as needed. 6. Benadryl 25 mg orally daily. 7. Multivitamins once daily. 8. Meloxicam 15 mg daily. ALLERGIES No known drug allergies. REVIEW OF SYSTEMS CONSTITUTIONAL: No appetite or weight change. No fever, chills or sweating. No recent infection. HEENT: Ears: No tinnitus or hearing problem. Nose: No nasal discharge or epistaxis. Throat: No sore throat or mouth ulcers. Eyes: No diplopia or visual changes. RESPIRATORY: No shortness of breath. No cough, expectoration or hemoptysis. CARDIOVASCULAR: No chest pain, orthopnea, or paroxysmal nocturnal dyspnea (PND). No edema. No palpitations. GASTROINTESTINAL: No nausea or vomiting. No diarrhea or constipation. No change in bowel movements. No heartburn or swallowing difficulties. No abdominal pain. No jaundice. No hematemesis, melena or rectal bleeding. GENITOURINARY: No hematuria or dysuria. MUSCULOSKELETAL: He has pain in the left hip and also pain int he feet. . NEUROLOGICAL: He has numbness in his legs. HEMATOLOGIC/LYMPHATIC: No bleeding or easy bruising. No weakness or fatigued. No enlarged lymph nodes. SKIN: No skin rash or lumps. PSYCHIATRIC: No anxiety or depression. PHYSICAL EXAMINATION GENERAL: Looks stable. Well-developed, well-nourished, and in no acute distress. VITAL SIGNS: Blood pressure 152/83, pulse 60 per minute, respirations 16 per minute, temperature 96.7, pulse oximetry 96% on room air. HEENT: Head: Atraumatic. No sinus tenderness to palpation. Eyes: No icterus or conjunctivitis. Mouth and throat: No oral thrush or mucositis. NECK: Supple. No cervical or supraclavicular lymphadenopathy. LUNGS: Clear to auscultation and percussion bilaterally. HEART: Regular rate and rhythm. No gallops, murmurs, clicks or rubs. ABDOMEN: Soft and lax. No tenderness. No hepatosplenomegaly. No masses. EXTREMITIES: No cyanosis, clubbing or edema. LYMPHATICS: No peripheral lymphadenopathy. NEUROLOGICAL: Conscious, alert and oriented times three. No focal motor or sensory deficits. PSYCHIATRIC: Mood and affect appear normal. SKIN: No skin rash, bruise or purpuric eruption. DIAGNOSTIC DATA CBC showed white count 5.1, hemoglobin 19.2, hematocrit 53.7% and platelets 125,000. Chem panel is totally normal except blood sugar 138, BUN 28. Serum iron is 117. TIBC is 304. Iron saturation 38%. Serum ferritin is 46. ASSESSMENT 1. Thrombocytopenia, very mild, and his platelet count is 125,000. No hematological intervention is require at the moment. His B12 folate, methylmalonic acid assay and platelet associated antibodies all came within normal range. We will continue to monitor his platelet count in the future with his visit. I will consider bone marrow aspiration biopsy for further evaluation if the platelet count drops below 20,000. 2. History of hemochromatosis. He had a phlebotomy in July 2017. His current ferritin is 49 and his current iron saturation is 38%. No indication of phlebotomy this visit. 3. Secondary erythrocytosis. Current hematocrit is 53.7%. Patient is going to have surgery next month and I advised him a week before his surgery to check his CBC again and if the hematocrit above 55% we will do a phlebotomy. 4. Peripheral neuropathy, on gabapentin. 5. Type 2 diabetes. PLAN 1. Phlebotomize 500 mL if serum ferritin above 100 and/or iron saturation above 60% or if the hematocrit is above 55%. 2. Patient to return in three months with CBC, iron studies with ferritin and chem panel. 3. Patient to contact us for any new concern or complaints. 4. Check CBC on November 29, 2017 prior to his surgery and if the hematocrit is high we will do a phlebotomy at that time. JEVON
[2017-12-09] MEDS ORDERED: ASPI-757 PO (06:24)
[2017-12-10] MEDS ORDERED: TRAM-420 PO (08:18)
[2017-12-10] MEDS ORDERED: HYDR-654 PO (08:19)
[2017-12-10] MEDS ORDERED: META800T18 PO (08:20)
== END 2018-02-03 ==
LOC: ONC 07:15
PROVIDERS: ATTEND Internal Medicine Hematology
DX: D69.6 Thrombocytopenia, unspecified (principal); D75.1 Secondary polycythemia; G62.9 Polyneuropathy, unspecified; E11.9 Type 2 diabetes mellitus without complications; Z79.899 Other long term (current) drug therapy
CPT/HCPCS: 99212

== ENCOUNTER → 2017-11-16 | Outpatient (CLI) | payer MEDICARE, OTHER ==
[2017-02-23 08:48] VITALS: BMI 30.4
[~2017-11-16] MED LIST changes: +HYDR-4309 PO; -HYDR-653 PO; +METF-452 PO; +SITA1TAB17 PO
--- NOTE | 2017-11-16 08:42 | RADIOLOGY IMAGING REPORT ---
FACILITY: [facility] PATIENT NAME: Adalberto Sun : 1945 MR: [id number] V: [id number] EXAM DATE: ORDERING PHYSICIAN: CASSIDY PERALES TECHNOLOGIST: [place] [facility] [place]: Adalber[place] Sun : 1945 Visit/Account:[id number] Date of Sevice: 11/16/2017 CT abdomen and pelvis without contrast Indication: ESWL Comparison: Multitude of prior examinations, most recent is a CT examination abdomen and pelvis witho ut contrast December 18, 2016 Technique: Axial CT images are obtained through the abdomen and pelvis. Reformatted coronal and sagit yolanda images were reviewed. IV contrast was not administered. One of the following dose optimization te chniques was utilized in the performance of this exam: Automated exposure control; adjustment of the mA and/or kV according to the patient's size; or use of an iterative reconstruction technique. Spec [facility] details can be referenced in the facility's radiology CT exam operational policy. Findings: Lower lung salas: Stable linear atelectasis/scarring is noted within the lingula and anteriorly with in the left lower lobe.There is a stable 6 mm nodule anterior lateral portion right lower lobe noted on image 8/222. Evaluation of the solid organs of the abdomen is limited without IV contrast. Liver: Biliary: Gallbladder appears unremarkable as well as the intra and extra hepatic biliary syste m. Pancreas: Normal appearance. Spleen: Normal appearance. Adrenal glands: Stable low-density left adrenal nodule Kidneys / retroperitoneum: The unenhanced right kidney is stable without evidence of new urolithiasis or hydronephrosis. No new perinephric stranding. Stable calcified cyst anterior aspect lower pole. No change in the uniformly high density cysts with in the lateral aspect of the upper pole measuring 1.5 cm in greatest AP dimension. There is a 4 mm n onobstructive stone overlying an lower pole calyx on the left. Bowel / peritoneum / mesenteries: Diverticulosis coli of the descending and proximal sigmoid colon. No evidence of periintestinal stranding, fluid collection, free air or focal intestinal wall abnormal ity. The small intestine is without abnormality. Lymph node assessment: No pathologic adenopathy identified. Pelvic structures: No acute finding Vessels: No significant atherosclerotic calcifications seen throughout a nonaneurysmal abdominal aort a and branches. Musculoskeletal / Body wall: Fat-containing small periumbilical hernia. Stable spondylotic changes l umbar spine without acute bony finding IMPRESSION: 1. 4 mm nonobstructive stone on the left. No additional evidence of urolithiasis. 2. Stable left renal cortical cysts 3. No change in the low-density left adrenal nodule most consistent with an adenoma. Report Dictated By: Jl Georges MD at 11/16/2017 8:25 AM Report E-Signed By: Jl Georges MD at 11/16/2017 8:39 AM WSN:[email or web address]
== END ==
LOC: CT 00:38
PROVIDERS: ATTEND Urology
DX: N20.0 Calculus of kidney (principal); N28.1 Cyst of kidney, acquired
CPT/HCPCS: 74176

== ENCOUNTER 2017-12-07 04:38 | Inpatient (IN) | payer MEDICARE, OTHER ==
[2017-12-06 15:58] LABS: INR 0.99
[~2017-12-07] VITALS: Ht 193 cm; Wt 107.5 kg
[2017-12-07] VITALS (11 sets, daily range): BP systolic 116–145; BP diastolic 67–95
--- NOTE | 2017-12-07 01:55 | LEVENE H&P ---
DATE OF ADMISSION: December 07, 2017 IDENTIFICATION/CHIEF COMPLAINT Adalberto is a 72-year-old gentleman with chief complaint of left hip pain. HISTORY OF PRESENT ILLNESS Patient has a longstanding history of hip arthritis, progressively painful and debilitating, refractory to conservative care. Surgery is indicated to relieve symptoms after failure of nonoperative measures. PAST MEDICAL HISTORY Notable for: 1. Coronary artery disease. 2. Type 2 diabetes. 3. Kidney stones. PAST SURGICAL HISTORY Notable for: 1. ACL surgery. 2. Lithotripsies. 3. Tonsillectomy. ALLERGIES TOMATOES, RED WINE, and CHOCOLATE. He has no known drug allergies. CURRENT MEDICATIONS 1. Mobic 7.5 mg b.i.d. p.o. 2. Vitamin D 2000 units p.o. daily. 3. Hydrochlorothiazide 25 mg p.o. daily. 4. Gabapentin 300 mg p.o. t.i.d. 5. Janumet 4 mg p.o. daily. FAMILY HISTORY Notable for father and brother with heart disease, and a sister with ovarian cancer. SOCIAL HISTORY Negative for tobacco use. Drinks alcohol socially. REVIEW OF SYSTEMS Negative. PHYSICAL EXAMINATION GENERAL: This is a well-developed, well-nourished male who appears stated age. HEENT: Normocephalic, atraumatic. NECK: Supple. LUNGS: Clear to auscultation bilaterally. HEART: Regular rate and rhythm. ABDOMEN: Soft. ORTHOPEDIC EXAMINATION Left hip is stiff at the limits of rotation. He has loss of internal rotation versus contralateral. Hip girdle strength is normal. Skin envelope is intact. Calves nontender. Neurovascular function is intact. Radiographs demonstrate end-stage hip arthritis. ASSESSMENT Left hip end-stage degenerative joint disease, progressively painful and debilitating, refractory to conservative care. PLAN Per patient request, going to proceed with total hip arthroplasty. The nature of the procedure, the risks, benefits, and the anticipated rehabilitative course were reviewed. Risks include but are not limited to , major medical or anesthetic complication, infection, neurovascular injury, blood transfusion, stiffness, scarring, fracture, tendon rupture, instability, implant loosening, migration or failure, leg length discrepancy, need for additional surgery and other unforeseen. He understands and wishes to proceed. A signed permit is placed in the chart. No guarantees are given or implied. [facility] CENTERAndrew
[~2017-12-07 04:38] MED LIST changes: -HYDR-4309 PO; +HYDR-653 PO
[2017-12-07] MEDS ORDERED: cloNIDine EPIDUR INJ 100MCG/ML 40 MCG, ROPIVACAINE 0.5% 20 ML VIAL 25 ML, EPINEPHrine H... INJ ONE (06:15)
[2017-12-07] MEDS ORDERED: MIDAZOLAM 2 MG/2 ML VIAL IVP PRN (06:15)
[2017-12-07] MEDS ORDERED: FAMOTIDINE 20 MG TAB PO ONE (06:15)
[2017-12-07] MEDS ORDERED: ACETAMINOPHEN 500 MG TAB PO ONE (06:15)
[2017-12-07] MEDS ORDERED: TRANEXAMIC AC 1000 MG/10ML SDV 1,000 MG in DEXTROSE 5% 50 ML BAG 50 ML IV ONE (06:15)
[2017-12-07] MEDS ORDERED: NORMOSOL R SOLN(*) 1000 ML BAG 1,000 ML IV PRN ×2 (06:15→09:35)
[2017-12-07] MEDS ORDERED: CELECOXIB 200 MG CAP PO ONE (06:15)
[2017-12-07] MEDS ORDERED: ceFAZolin(*) 2GM/D5W 50ML 50 ML IVPB ONE (06:15)
[2017-12-07] MEDS ORDERED: LIDOCAINE/SOD BICARB 8.4% SYR ID ONE (06:15)
[2017-12-07] MEDS ORDERED: PREGABALIN 75 MG CAPSULE PO ONE (06:15)
[2017-12-07] MEDS ORDERED: VANCOMYCIN 1 GM VIAL ONE (06:38)
[2017-12-07] MEDS ORDERED: DEXAMETHASONE SOD 4 MG/ML VIAL ONE (06:52)
[2017-12-07] MEDS ORDERED: ONDANSETRON 4 MG/2 ML VIAL ONE (06:52)
[2017-12-07] MEDS ORDERED: LIDOCAINE MPF 1% 5 ML VIAL ONE (06:52)
[2017-12-07] MEDS ORDERED: PROPOFOL EMUL(*) 10MG/ML 20 ML 20 ML ONE (06:52)
[2017-12-07] MEDS ORDERED: fentaNYL CITR 100 MCG/2 ML AMP ONE (06:53)
[2017-12-07] MEDS ORDERED: MIDAZOLAM 2 MG/2 ML VIAL ONE (06:54)
[2017-12-07] MEDS ORDERED: KETAMINE HCL-NS 50 MG/5 ML SYR ONE (06:54)
[2017-12-07] MEDS ORDERED: diphenhydrAMINE 25 MG CAP PO PRN (09:35)
[2017-12-07] MEDS ORDERED: diphenhydrAMINE 50 MG/ML VIAL IVP PRN (09:35)
[2017-12-07] MEDS ORDERED: FLUSH 10 ML SYR IVP PRN (09:35)
[2017-12-07] MEDS ORDERED: MAGNESIUM HYDROXIDE* 30ML UDCP PO PRN (09:35)
[2017-12-07] MEDS ORDERED: APAP/HYDROCODONE 325/7.5 TAB PO PRN (09:35)
[2017-12-07] MEDS ORDERED: BISACODYL 10 MG SUPP PR PRN (09:35)
[2017-12-07] MEDS ORDERED: BENZOCAINE/MENTHOL 1 EACH LOZG PO PRN (09:35)
[2017-12-07] MEDS ORDERED: ZOLPIDEM TARTRATE 5 MG TAB PO PRN (09:35)
[2017-12-07] MEDS ORDERED: PROMETHAZINE 25 MG/ML 1 ML AMP IVP PRN (09:35)
--- NOTE | 2017-12-07 10:30 | RADIOLOGY IMAGING REPORT ---
FACILITY: [facility] PATIENT NAME: Adalberto Sun : 1945 MR: [id number] V: [id number] EXAM DATE: ORDERING PHYSICIAN: VINICIO CLEVELAND TECHNOLOGIST: Location: [facility] - [place] Patient: Adalberto Sun : 1945 Visit/Account:[id number] Date of Sevice: 12/07/2017 Exam type: PELVIS History: POST-OP PLACEMENT Comparison: None. Findings: The left hip arthroplasty appears in good anatomic alignment on this single AP view. Soft tissue gas is present around the left hip. Skin efrain project along the lateral aspect of the left hip IMPRESSION: 1. As above Report Dictated By: Gabriella Stallworth MD at 12/07/2017 10:25 AM Report E-Signed By: Gabriella Stallworth MD at 12/07/2017 10:26 AM WSN:[email or web address]
--- NOTE | 2017-12-07 12:48 | OPERATIVE REPORT 1 ---
EVENT DATE: December 07, 2017 SURGEON: Raheel Kearns MD ANESTHESIOLOGIST: Dru Forman MD ANESTHESIA: General plus spinal. AOC DIRECTOR INTELLIGENCE OFFICER: SUKHI Chawla, PLANNING ADVISOR PREOPERATIVE DIAGNOSIS Left hip degenerative joint disease. POSTOPERATIVE DIAGNOSIS Left hip degenerative joint disease. PROCEDURE PERFORMED Left total hip arthroplasty. ESTIMATED BLOOD LOSS 200 cc. DRAINS None. SPECIMENS None. COMPLICATIONS None apparent. IMPLANTS USED Nile system with an Accolade II 132-degree size 68 stem, a Trident PSL GALVEZ cluster acetabular shell size 58 mm, Trident X3 zero-degree polyethylene liner to accommodate 36 mm head a Biolox Delta Ceramic V40 femoral head, 36 mm plus 5 mm neck length. INDICATIONS Narciso has intractable pain and disability related to endstage hip arthritis. Surgery is indicated to relieve symptoms after failure nonoperative measures. DESCRIPTION OF PROCEDURE The patient was taken to the operating room, placed supine on the operating table. Spinal block is administered by the anesthesiologist. General anesthesia induced. Antibiotics and TXA are administered IV. The patient is positioned on the right lateral decubitus position on a well-padded pegboard. Pelvis is secured in the vertical position. All bony prominences and superficial nerves are well padded. The left hip girdle and lower extremity are prepped and draped in the usual sterile fashion for hip arthroplasty. A small incision posterolateral approach is made and carried down through the skin and subcutaneous tissue down to the deep fascia. The fascia is incised over the tip of the trochanter, extended distally in line with the femur, proximally in line with the isiah fibers. Isiah fibers are split bluntly. Trochanteric bursa is excised. Interval between the abductor and external rotator is identified and a blunt Hohmann is used to protect the abductor mechanism. An L capsulotomy/tenotomy is performed with the horizontal limb just above the piriformis. The capsule and external rotators are pealed off the back of the posterior lateral femur. These are tagged with #2 Vicryl for later anatomic reattachment. Femoral head is dislocated. Endstage arthritic is noted. A 1.5 cm neck cut is made consistent with preoperative templating. The femur is then extracted, the femur is translocated anteriorly. The zach-acetabular retractors are placed with the tips down on bone to avoid injury to the critical neurovascular structures. Labrum and pulvinar are excised. A 44 mm reamer is used to medialize through the true medial wall of the acetabulum. This is expanded in 2 mm increments up to 58 where nice rim contact is obtained. A trial 58 has nice capture and fit. The throat of the acetabulum was opened with a 59 reamer to accommodate the raised rim liner and reduce fracture risk. The wound is copiously lavaged. The actual shell is impacted in approximately 40 degrees of lateral opening and 15 to 20 degrees of anteversion using internal bony landmarks, the transverse acetabular ligament and the extracorporeal guide to guide socket placement. Rock-solid fixation is achieved. No adjuvant fixation is felt to be needed. The actual liner was impacted into the cleaned and dried shell. Attention is turned to femoral preparation. The superior neck is resected with a FlashSoft cutter. A Charnley awl finds the canal. Tapered broaching starts at the 0 and working up to size 8 where nice solid stability of the broach and fit and fill are obtained. Trial reduction is performed off this broach and and good spiritism of the limb length and stability are achievable. The broach is extracted. The actual femoral stem is then impacted and sits at about the same height. Trial reduction was performed with various neck lengths. Plus 5 is felt to be optimal with spiritism of the soft tissue tension, stability and limb length. Weems taper is lavaged and dried, and the actual head is impacted into position. The joint is reduced. External rotators and capsule are reapproximated anatomically through drill holes in the posterolateral femur. Deep fascia closed distally with #2 Ethibond, proximally with #2 Vicryl. Subcutaneous tissue closed with 3-0 Vicryl, the skin with surgical efrain, Xeroform and 4 x 4 dry, sterile dressing, and compression wrap. Patient is wakened from anesthesia, rolled supine, abduction pillow was placed and taken to the recovery room in stable condition having tolerated the procedure well. PLAN Plan is for standard [facility] rehab protocol. [facility]
--- NOTE | 2017-12-07 12:59 | Hospitalist Consultation ---
History of Present Illness Requesting Physician Dr. Kearns Reason for Consult Medical Management Chief Complaint s/p left total hip replacement History of Present Illness He was admitted s/p left total hip replacement. It is reported the surgery went well and without complication. History Problems: (1) Type 2 diabetes mellitus Status: Chronic (2) Thrombocytopenia Status: Chronic (3) Essential hypertension Status: Chronic (4) Hemochromatosis Status: Chronic Home Meds Reported Medications Sitagliptin Phos/Metformin Hcl (JANUMET 50-1,000 MG TABLET) 1 Each Tablet, 1 EACH PO BID 11/05/17 Docusate Calcium (SURFAK) 240 Mg Capsule, 240 MG PO QDAY, #9 CAPSULE 02/24/17 Pyridoxine Hcl (VITAMIN B-6) 50 Mg Capsule, 50 MG PO, CAPSULE 02/22/17 Magnesium Oxide (MAG-OXIDE) 400 Mg Tablet, 400 MG PO 02/22/17 Psyllium Husk (METAMUCIL) 0.52 Gm Capsule, 22 G PO QDAY, CAPSULE 02/17/17 Loratadine (LORATADINE) 10 Mg Tablet, 10 MG PO QDAY 02/17/17 Hydrochlorothiazide (HYDROCHLOROTHIAZIDE) 25 Mg Tablet, 1 TAB PO QDAY, TAB 02/17/17 Potassium Citrate (POTASSIUM CITRATE) 540 Mg Tabcr, 1620 MG PO QDAY 09/15/16 Cholecalciferol (Vitamin D3) (VITAMIN D) 2,000 Unit Capsule, 2000 UNIT PO DAILY, CAPSULE 07/04/15 Gabapentin (GABAPENTIN) 300 Mg Capsule, 300 MG PO TID PRN for PAIN, CAPSULE 07/04/15 Meloxicam (Mobic) 15 Mg Tablet, 15 MG PO DAILY, 0 Refills 02/23/11 Allergies: Coded Allergies: tomato (Verified Allergy, Unknown, 02/17/17) Uncoded Allergies: chocolate (Allergy, Unknown, 02/17/17) red wine (Allergy, Unknown, 02/17/17) Patient History: Arrhythmia BROTHER OR SISTER FH: CABG (coronary artery bypass surgery) FATHER FH: CAD (coronary artery disease) FATHER BROTHER OR SISTER FH: CO (myocardial infarction) FATHER FH: ovarian cancer BROTHER OR SISTER FH: prostate cancer FATHER FH: skin cancer MOTHER Pacemaker MOTHER BROTHER OR SISTER Stent BROTHER OR SISTER Hx Smoking: No Smoking Status: Never Smoker Caffeine Intake: Coffee, Tea Caffeine/Cups Per Day: 2 cups Qday Hx Alcohol Use: Yes (1-2 drinks per month) Hx Substance Use Disorder: No Social Drug Use: Never History of IV Drug Use: No Review of Systems All Systems Reviewed/Normal: Yes, Except as Noted Exam Vital Signs Vital Signs Date Time Temp Pulse Resp B/P (MAP) Pulse Ox O2 Delivery O2 Flow Rate FiO2 12/07/17 10:45 64 12 96 12/07/17 05:57 97.0 145/95 (112) Room Air General Appearance: Alert, Awake, No Acute Distress, Afebrile Neuro: No Gross deficits Cardiovascular: Regular Rate and Rhythm Respiratory: No Respiratory Distress, Clear to Auscultation Psych: Alert & Oriented X3, Appropriate Mood & Affect Assessment and Plan Problems: (1) Status post total hip replacement, left Status: Acute Assessment & Plan: He will be placed on Aspirin 325mg daily for DVT prophylaxis. He has no history of DVT or PE. (2) Essential hypertension Status: Chronic Assessment & Plan: He is on chronic treatment with hydrochlorothiazide. This has been restarted with hold parameters. (3) Type 2 diabetes mellitus Status: Chronic Assessment & Plan: He is on chronic treatment with Janumet. This will be held at this time. He will be placed on ADA diet, AC/HS glucose monitoring, and SS insulin #2. (4) Thrombocytopenia Status: Chronic Assessment & Plan: Platelet count 125,000 prior to surgery. Will check CBC in the morning. (5) Hemochromatosis Status: Chronic Assessment & Plan: Hemoglobin 19.2 prior to surgery. Will check CBC in the morning. Venous Thromboembolism Antithrombotics Is Pt On Any Antithrombotics?: No RAVI CONNOR FORKLIFT SUPERVISOR Dec 07, 2017 12:59
[2017-12-07] MEDS: ceFAZolin(*) 1 GM VIAL 1 GM in NS(*) 0.9% 100 ML ADDVANT BAG 100 ML IVPB SCH (15:51)
[2017-12-07] MEDS: CELECOXIB 200 MG CAP PO SCH (17:16)
[2017-12-07] MEDS: INSULIN HUM LISPRO 100 UN/ML 3 ML VIAL SUBQ PRN ×2 (17:17→21:27)
[2017-12-07] MEDS: GABAPENTIN 300 MG CAP PO PRN (21:26)
[2017-12-08] VITALS (7 sets, daily range): BP systolic 116–130; BP diastolic 62–70; Ht 193 cm; Wt 107.5 kg
[2017-12-08] MEDS: ceFAZolin(*) 1 GM VIAL 1 GM in NS(*) 0.9% 100 ML ADDVANT BAG 100 ML IVPB SCH ×2 (00:14→06:55)
[2017-12-08] MEDS: ACETAMINOPHEN 325 MG TAB PO PRN ×2 (05:08→16:53)
[2017-12-08 05:33] LABS: PLATELET COUNT, AUTOMATED 119 K/uL (150-450)
[2017-12-08] MEDS: INSULIN HUM LISPRO 100 UN/ML 3 ML VIAL SUBQ PRN ×3 (07:32→21:06)
[2017-12-08] MEDS: LORATADINE 10 MG TAB PO SCH (09:32)
[2017-12-08] MEDS: traMADol 50 MG TAB PO PRN ×3 (09:36→21:05)
[2017-12-08] MEDS: CELECOXIB 200 MG CAP PO SCH ×2 (09:38→17:41)
[2017-12-08] MEDS: HYDROCHLOROTHIAZIDE 25 MG TAB PO SCH (09:40)
[2017-12-08] MEDS: ASPIRIN 325 MG TAB PO SCH (09:40)
--- NOTE | 2017-12-08 10:14 | Hospitalist Progress Note ---
Subjective Progress Notes Subjective He had no complaints this morning. He had no acute events overnight. Patient Complains of: Cardiovascular: No: Chest Pain Respiratory: No: Shortness of Breath Physical Exam Vital Signs Date Time Temp Pulse Resp B/P (MAP) Pulse Ox O2 Delivery O2 Flow Rate FiO2 12/08/17 07:37 98.0 71 12 130/70 (90) 94 Room Air 12/07/17 10:45 2.0 Intake and Output 12/08/17 07:00 Intake Total 1950 ml Output Total 375 ml Balance 1575 ml Intake Oral 0 ml IV Total 1950 ml Output Urine Total 375 ml # Voids 4 General Appearance: Alert, Awake, No Acute Distress, Afebrile Neuro: No Gross deficits Cardiovascular: Regular Rate and Rhythm Respiratory: No Respiratory Distress, Clear to Auscultation GI: Soft and Non-Tender Psych: Alert & Oriented X3, Appropriate Mood & Affect Result Diagram: 12/08/17 0514 Assessment and Plan Problems: (1) Status post total hip replacement, left Status: Acute Assessment & Plan: He will be placed on Aspirin 325mg daily for DVT prophylaxis. He has no history of DVT or PE. (2) Essential hypertension Status: Chronic Assessment & Plan: He is on chronic treatment with hydrochlorothiazide. This has been restarted with hold parameters. (3) Type 2 diabetes mellitus Status: Chronic Assessment & Plan: He is on chronic treatment with Janumet. Metformin restarted 12/08. He will be placed on ADA diet, AC/HS glucose monitoring, and SS insulin #2. (4) Thrombocytopenia Status: Chronic Assessment & Plan: Platelet count 125,000 prior to surgery, now 119,000. Stable. (5) Hemochromatosis Status: Chronic Assessment & Plan: Hemoglobin 19.2 prior to surgery, decreased to 16.1 post- operatively. Exam Sepsis Risk: No Definite Risk RAVI CONNOR BIOINFORMATICS TECHNICIAN Dec 08, 2017 10:14
[2017-12-08] MEDS: DIAZEPAM 5 MG TAB PO PRN (16:53)
[2017-12-08] MEDS: metFORMIN HCL 500 MG TAB PO SCH (17:41)
[2017-12-08] MEDS: GABAPENTIN 300 MG CAP PO PRN (21:05)
[2017-12-09] MEDS: GABAPENTIN 300 MG CAP PO PRN ×2 (06:02→16:54)
[2017-12-09] MEDS: traMADol 50 MG TAB PO PRN ×4 (06:02→20:52)
[2017-12-09] MEDS: DIAZEPAM 5 MG TAB PO PRN (06:02)
--- NOTE | 2017-12-09 06:21 | Hospitalist Progress Note ---
Subjective Progress Notes Subjective He c/o pain/tightness in left thigh. No CP/SOB/N/V. Physical Exam Vital Signs Date Time Temp Pulse Resp B/P (MAP) Pulse Ox O2 Delivery O2 Flow Rate FiO2 12/08/17 23:25 98.4 64 20 116/62 (80) 89 Room Air 12/07/17 10:45 2.0 Intake and Output0 12/09/17 07:00 Intake Total 475 ml Output Total 375 ml Balance 100 ml Intake Oral 360 ml IV Total 115 ml Output Urine Total 375 ml # Voids 1 General Appearance: Alert, Awake Result Diagram: 12/08/17 0514 Item Value Date Time Whole Blood Glucose 191 mg/DL H 12/08/17 2052 Whole Blood Glucose 181 mg/DL H 12/08/17 1700 Whole Blood Glucose 148 mg/DL H 12/08/17 1130 Whole Blood Glucose 156 mg/DL H 12/08/17 0729 Whole Blood Glucose 200 mg/DL H 12/07/173 Assessment and Plan Problems: (1) Status post total hip replacement, left Status: Acute Assessment & Plan: He is on Aspirin 325mg daily for DVT prophylaxis. He has no history of DVT or PE. (2) Essential hypertension Status: Chronic Assessment & Plan: He is on chronic treatment with hydrochlorothiazide. This has been restarted with hold parameters. (3) Type 2 diabetes mellitus Status: Chronic Assessment & Plan: He is on chronic treatment with Janumet. He is also on ADA diet, AC/HS glucose monitoring, and SS insulin #2. (4) Thrombocytopenia Status: Chronic Assessment & Plan: Platelet count 125K prior to surgery and 119K on post-op day 1. Stable. (5) Hemochromatosis Status: Chronic Assessment & Plan: He receives periodic phlebotomy with Dr. Ranulfo Croft. Hemoglobin 16.1 post-operatively. Exam Sepsis Risk: No Definite Risk CLARA ARIAS MD Dec 09, 2017 06:21
[2017-12-09] MEDS ORDERED: ASPI-757 PO (06:24)
[2017-12-09 07:49] VITALS: BP 118/77
[2017-12-09] MEDS: ASPIRIN 325 MG TAB PO SCH (08:42)
[2017-12-09] MEDS: CELECOXIB 200 MG CAP PO SCH ×2 (08:42→16:54)
[2017-12-09] MEDS: metFORMIN HCL 500 MG TAB PO SCH ×2 (08:42→16:54)
[2017-12-09] MEDS: LORATADINE 10 MG TAB PO SCH (08:42)
[2017-12-09] MEDS: HYDROCHLOROTHIAZIDE 25 MG TAB PO SCH (08:45)
[2017-12-09] MEDS: METAXALONE 800 MG TAB PO PRN ×2 (11:10→20:51)
[2017-12-09 11:12] VITALS: BP 122/62
[2017-12-09 15:25] VITALS: BP 125/68
[2017-12-09 20:14] VITALS: BP 113/74
[2017-12-09] MEDS: INSULIN HUM LISPRO 100 UN/ML 3 ML VIAL SUBQ PRN (21:01)
[2017-12-10 03:02] VITALS: BP 118/68
[2017-12-10] MEDS: METAXALONE 800 MG TAB PO PRN (05:51)
[2017-12-10] MEDS: traMADol 50 MG TAB PO PRN ×2 (05:51→11:11)
--- NOTE | 2017-12-10 06:44 | Hospitalist Progress Note ---
Subjective Progress Notes Subjective 72M admitted for L [facility]. [facility]INA overnight, progressing well with PT. Medically appears stable for discharge at discretion of ortho. Patient Complains of: Neurological: No: Syncope Gastrointestinal: No Nausea, No Vomiting Physical Exam Vital Signs Date Time Temp Pulse Resp B/P (MAP) Pulse Ox O2 Delivery O2 Flow Rate FiO2 12/10/17 03:02 98.0 63 18 118/68 (85) 92 Room Air 12/07/17 10:45 2.0 Intake and Output 12/10/17 07:00 Intake Total 1320 ml Output Total 1275 ml Balance 45 ml Intake Oral 1320 ml Output Urine Total 1275 ml # Voids 3 General Appearance: Alert, Awake, No Acute Distress Neuro: No Gross deficits Eyes: PERRLA ENT: Normal Neck: No Masses Cardiovascular: Normal Rhythm & Peripheral Pulses Respiratory: No Respiratory Distress GI: Soft and Non-Tender Musculoskeletal: No Weakness/Pain Extremities: Soft and Non Tender, Warm, Pulses, Perfused; No Edema Result Diagram: 12/08/17 0514 Assessment and Plan Problems: (1) Status post total hip replacement, left Status: Acute Assessment & Plan: He is on Aspirin 325mg daily for DVT prophylaxis. He has no history of DVT or PE. (2) Essential hypertension Status: Chronic Assessment & Plan: He is on chronic treatment with hydrochlorothiazide. This has been restarted with hold parameters. (3) Type 2 diabetes mellitus Status: Chronic Assessment & Plan: He is on chronic treatment with Janumet. He is also on ADA diet, AC/HS glucose monitoring, and SS insulin #2. (4) Thrombocytopenia Status: Chronic Assessment & Plan: Platelet count 125K prior to surgery and 119K on post-op day 1. Stable. (5) Hemochromatosis Status: Chronic Assessment & Plan: He receives periodic phlebotomy with Dr. Ranulfo Croft. He moglobin 16.1 post-operatively. Exam Sepsis Risk: No Definite Risk ZELAYA JIM WONG DO Dec 10, 2017 06:44
[2017-12-10 06:52] VITALS: BP 118/66
[2017-12-10] MEDS: metFORMIN HCL 500 MG TAB PO SCH (08:14)
[2017-12-10] MEDS: CELECOXIB 200 MG CAP PO SCH (08:15)
[2017-12-10] MEDS: ASPIRIN 325 MG TAB PO SCH (08:15)
[2017-12-10] MEDS: LORATADINE 10 MG TAB PO SCH (08:15)
[2017-12-10] MEDS ORDERED: TRAM-420 PO (08:18)
[2017-12-10] MEDS ORDERED: HYDR-654 PO (08:19)
[2017-12-10] MEDS ORDERED: META800T18 PO (08:20)
[2017-12-10] MEDS: HYDROCHLOROTHIAZIDE 25 MG TAB PO SCH (08:21)
== END 2017-12-10 11:20 | disposition home or self-care (01) | DRG 470 ==
LOC: OR 04:38 → MED 10:45
PROVIDERS: ADMIT Orthopaedic Surgery; ATTEND Orthopaedic Surgery
PROC: 0SRB04A Replacement of Left Hip Joint with Ceramic on Polyethylene Synthetic Substitute, Uncemented, Open Approach (ICD-10-PCS; principal; 2017-12-07 07:15)
DX: M16.12 Unilateral primary osteoarthritis, left hip (principal); I25.10 Atherosclerotic heart disease of native coronary artery without angina pectoris; N20.0 Calculus of kidney; E11.9 Type 2 diabetes mellitus without complications; Z91.018 Allergy to other foods; D69.6 Thrombocytopenia, unspecified; E83.119 Hemochromatosis, unspecified
CPT/HCPCS: 36415; 36416; 72170; 82948; 85025; 85610; 86850; 86900; 86901; 97161; 97165; C1776; J0171; J0690; J0735; J1100; J1885; J2001; J2250; J2405; J2704; J2795; J3010; J3370; J3490; J7050; J7060

== ENCOUNTER 2018-02-04 07:05 | Outpatient (RCR) | payer MEDICARE, OTHER ==
[2017-12-08 14:46] VITALS: Wt 111.6 kg
[~2018-02-04 07:05] MED LIST changes: +ASPI-757 PO; +HYDR-654 PO; +META800T18 PO; +TRAM-420 PO
[2018-02-04 10:06] VITALS: BP 148/81
[2018-02-04] MEDS ORDERED: INFLUENZA VIRUS VAC 0.5ML SYR IM ONLY ONE (10:20)
--- NOTE | 2018-02-04 21:58 | [facility] ONCOLOGY NOTE ---
EVENT DATE: February 04, 2018 DIAGNOSES 1. Thrombocytopenia. 2. Hereditary hemochromatosis. 3. Peripheral bony neuropathy. 4. Type 2 diabetes. 5. History of renal stones. CHIEF COMPLAINT Patient is here today for followup of his thrombocytopenia, hereditary hemochromatosis, and secondary erythrocytosis. HEMATOLOGY HISTORY The patient is a 72-year-old male who was diagnosed with hereditary hemochromatosis 10 years ago, on maintenance phlebotomies currently. The patient has been followed by Dr. 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 He was found to have mild thrombocytopenia lately, and for this reason, the patient had CT-guided biopsy of the liver done on April 28, 2016. The final diagnosis was consistent with focal mild periportal chronic inflammatory and no increased fibrosis. The patient was concerned about his thrombocytopenia, and that is why he came to discuss further evaluation and management. Patient had repeat CBC which showed white count 4.8, hemoglobin 17.2, hematocrit 51.7%, and platelets 103,000. Iron studies showed serum iron 92, TIBC 238, iron saturation 39%, and ferritin 90. Platelet-associated antibodies came back negative. Serum folate was more than 20. Methylmalonic acid assay was normal at 195. B12 level was normal at 557. HISTORY OF PRESENT ILLNESS Patient is here today for followup of his hereditary hemochromatosis, secondary erythrocytosis, and thrombocytopenia. He is complaining of some pain in the feet and numbness in his feet from neuropathy, but other than that, he is really doing very well. PAST MEDICAL HISTORY 1. Peripheral neuropathy. 2. Hereditary hemochromatosis. 3. Labile hypertension. 4. Type 2 diabetes. 5. History of renal stones. PAST SURGICAL HISTORY 1. 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 2. He had had surgery for a possible mass, which came back negative. 3. He had also tonsillectomy. FAMILY HISTORY Father had prostate cancer. Sister with ovarian cancer. No history of hemochromatosis in his family. SOCIAL HISTORY The patient is with two children. 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 He denies any abuse of tobacco or illicit drugs. He has one drink per week. CURRENT MEDICATIONS 1. Magnesium oxide/pyridoxine hydrochloride one tablet daily. 2. Colace 100 mg twice daily. 3. Vitamin D 2000 units daily. 4. Benicar 40 mg daily. 5. Gabapentin 300 mg three times daily as needed. 6. Benadryl 25 mg orally daily. 7. Multivitamins once daily. 8. Meloxicam 15 mg daily. ALLERGIES No known drug allergies. REVIEW OF SYSTEMS CONSTITUTIONAL: No appetite or weight change. No fever, chills, or sweating. No recent infection. HEENT: Ears: No tinnitus or hearing problem. Nose: No nasal discharge or epistaxis. Throat: No sore throat or mouth ulcers. Eyes: No diplopia or visual changes. RESPIRATORY: No shortness of breath. No cough, expectoration, or hemoptysis. CARDIOVASCULAR: No chest pain, orthopnea, or paroxysmal nocturnal dyspnea (PND). No edema. No palpitations. GASTROINTESTINAL: No nausea or vomiting. No diarrhea or constipation. No change in bowel movements. No heartburn or swallowing difficulties. No abdominal pain. No jaundice. No hematemesis, melena, or rectal bleeding. GENITOURINARY: No hematuria or dysuria. MUSCULOSKELETAL: He has pain in the feet. NEUROLOGIC: He has neuropathy in his feet. No headaches or convulsions. HEMATOLOGIC/LYMPHATIC: No bleeding or easy bruising. No weakness or fatigue. No enlarged lymph nodes. SKIN: No skin rash or lumps. PSYCHIATRIC: No anxiety or depression. PHYSICAL EXAMINATION GENERAL: Looks stable. Well developed, well nourished, and in no acute distress. VITAL SIGNS: Blood pressure 148/81, pulse 80 per minute, respirations 16 per minute, temperature 96.7, pulse ox 94% on room air. HEENT: Head: Atraumatic. No sinus tenderness to palpation. Eyes: No icterus or conjunctivitis. Mouth and throat: No oral thrush or mucositis. NECK: Supple. No cervical or supraclavicular lymphadenopathy. LUNGS: Clear to auscultation and percussion bilaterally. HEART: Regular rate and rhythm. No gallops, murmurs, click, or rubs. ABDOMEN: Soft and lax. No tenderness. No hepatosplenomegaly. No masses. EXTREMITIES: No cyanosis, clubbing, or edema. LYMPHATICS: No peripheral lymphadenopathy. NEUROLOGIC: Conscious, alert, and oriented times three. No focal motor or sensory deficits. PSYCHIATRIC: Mood and affect appear normal. SKIN: No skin rash, bruise, or purpuric eruption. DIAGNOSTIC DATA CBC showed white count 8.8, hemoglobin 17.5, hematocrit 52.8, platelets 178,000. Iron studies showed serum iron 39, TIBC 237, iron saturation 16%, and ferritin 150. ASSESSMENT 1. Thrombocytopenia, very mild. Currently, platelet count is normal at 178,000. Will continue to monitor with each visit. No hematological intervention is required. His vitamin B12, folate, methylmalonic assay, and platelet-associated antibodies all came within the normal range. 2. History of hemochromatosis. He had a phlebotomy recently with this new lab. His current ferritin is 150 and iron saturation 16%. He had received already the phlebotomy. Will continue to monitor every six months. 3. Secondary erythrocytosis. Current hematocrit is 52.8%, and the patient received already a phlebotomy this visit for hemochromatosis. I am planning to consider phlebotomy if hematocrit above 55%. 4. Peripheral neuropathy, on gabapentin. 5. Type 2 diabetes. PLAN 1. Phlebotomize 500 mL if serum ferritin more than 100 and/or iron saturation more than 60%, or if the hematocrit is above 55%. 2. Patient to return in six months with CBC, a chem panel, and iron studies with ferritin. 3. Patient to contact us for any new concern or complaints. SERGEID
== END 2018-03-21 07:43 | disposition home or self-care (01) ==
LOC: ONC 07:05
PROVIDERS: ATTEND Internal Medicine Hematology
DX: D69.6 Thrombocytopenia, unspecified (principal); D75.1 Secondary polycythemia; G62.9 Polyneuropathy, unspecified; E11.9 Type 2 diabetes mellitus without complications; Z79.899 Other long term (current) drug therapy; Z23 Encounter for immunization
CPT/HCPCS: G0008; G0463; Q2037; 90674; 99212